=== PATIENT | male | born 1980 ===

== ENCOUNTER 2016-09-18 11:19 | Emergency (ER) | payer OTHER, BC ==
[2016-09-18 11:27] VITALS: BMI 33.7
--- NOTE | 2016-09-18 11:32 | ED PDOC ---
Arrival/HPI - General Chief Complaint: Eye Problem Time Seen by Provider: 09/18/16 11:24 Historian: Patient - History of Present Illness Narrative History of Present Illness (Text): 09/18/16 11:38 A 35 year old male, with no significant past medical history, is presenting to the emergency department with an injury to his left eye. The patient reports the injury was caused while playing baseball and getting hit with a fast ball. He states he was wearing a helmet and protective eye gear. The patient notes swelling and a laceration to the left upper eyelid and swelling and a laceration to the left side of his nose. He denies any severe pain, loss of consciousness, vision changes, nausea, vomiting, diarrhea, fever, or any other complaints at this time. Time/Duration: Prior to Arrival Symptom Onset: Sudden Symptom Course: Unchanged Severity Level: Mild Activities at Onset: Other (Playing baseball) Past Medical History - Provider Review Nursing Documentation Reviewed: Yes - Cardiac Other/Comment: Atrial/septal defect - Pulmonary Hx Respiratory Disorders: No - Neurological Hx Neurological Disorder: No - HEENT Hx HEENT Disorder: No - Renal Hx Renal Disorder: No - Endocrine/Metabolic Hx Endocrine Disorders: No - Hematological/Oncological Hx Blood Disorders: No - Integumentary Hx Dermatological Disorder: No - Musculoskeletal/Rheumatological Hx Musculoskeletal Disorders: No - Gastrointestinal Hx Gastrointestinal Disorders: No - Genitourinary/Gynecological Hx Genitourinary Disorders: No - Psychiatric Hx Psychophysiologic Disorder: No Hx Substance Use: No - Surgical History Other/Comment: Atrial/septal defect correction - Anesthesia Hx Anesthesia: Yes Hx Anesthesia Reactions: No Family/Social History - Physician Review Nursing Documentation Reviewed: Yes Family/Social History: No Known Family HX Smoking Status: Never Smoked Hx Alcohol Use: Yes Frequency of alcohol use: Socially Hx Substance Use: No Allergies/Home Meds Allergies/Adverse Reactions: Allergies iodine Allergy (Verified 09/18/16 11:27) URTICARIA shellfish derived Allergy (Verified 09/18/16 11:27) URTICARIA Home Medications: Home Meds Medication Instructions Recorded Confirmed No Known Home Med 09/18/16 09/18/16 Review of Systems - Physician Review All systems were reviewed & negative as marked: Yes - Review of Systems Constitutional: absent: Fevers Eyes: Eye Pain (Swelling to the left eye). absent: Vision Changes ENT: Other (Sweling to the left side bridge of nose) Gastrointestinal: absent: Diarrhea, Nausea, Vomiting Physical Exam - Physical Exam Narrative Physical Exam (Text): 09/18/16 11:32 Constitutional: No acute distress. Head: Normocephalic. Atraumatic. No malocclusion of the jaw. Eyes: PERRL. Edema to the left upper eyelid. 3 cm laceration to the left eyebrow, non-separable edges, no active bleeding. ENT: Moist mucous membranes. < 1 cm laceration to the left bridge of the nose, non-separable edges, non active bleeding. Neck: Supple. Cardiovascular: Regular rate. Chest: No tenderness. Respiratory: Clear to auscultation bilaterally. GI: Soft. Nontender. Nondistended. Back: No CVA tenderness. Musculoskeletal: No tenderness or swelling of extremities. Non-tender to the frontal, temporal and maxillary bones. Skin: No rash. Neurologic: Alert, no focal deficit. Sensation to touch on both sides of face. Vital Signs Reviewed: Yes Vital Signs Temp Pulse Resp BP Pulse Ox 09/18/16 12:12 98.5 F 74 19 128/75 100 09/18/16 11:21 98.8 F 89 18 135/80 97 Temperature: Afebrile Blood Pressure: Normal Pulse: Regular Respiratory Rate: Normal Appearance: Positive for: Well-Appearing, Non-Toxic, Comfortable Pain Distress: None Mental Status: Positive for: Alert and Oriented X 3 Medical Decision Making ED Course and Treatment: 09/18/16 11:32 Impression: A 35 year old male with an injury to his left eye. Plan: -- Bacitracin -- TDap Vaccine Discharged home, wound care, f/u PMD, instructed to return for vomiting, confusion, vision change, or any other problem. - Medication Orders Current Medication Orders: Discontinued Medications Bacitracin (Bacitracin) 1 ea TOP ONCE ONE Stop: 09/18/16 11:47 Last Admin: 09/18/16 11:59 Dose: 1 ea Tetanus/Reduced Diphtheria/Acell Pertussis (Boostrix Vaccine Inj) 0.5 ml IM .ONCE ONE Stop: 09/18/16 11:47 Last Admin: 09/18/16 11:58 Dose: 0.5 ml - Scribe Statement The provider has reviewed the documentation as recorded by the Scribe Soledad Rosen Provider Scribe Attestation: All medical record entries made by the Scribe were at my direction and personally dictated by me. I have reviewed the chart and agree that the record accurately reflects my personal performance of the history, physical exam, medical decision making, and the department course for this patient. I have also personally directed, reviewed, and agree with the discharge instructions and disposition. Disposition/Present on Arrival - Present on Arrival Any Indicators Present on Arrival: No History of DVT/PE: No History of Uncontrolled Diabetes: No Urinary Catheter: No History of Decub. Ulcer: No History Surgical Site Infection Following: None - Disposition Have Diagnosis and Disposition been Completed?: Yes Diagnosis: Head contusion, Abrasion Disposition: HOME/ ROUTINE Disposition Time: 11:47 Patient Plan: Discharge Condition: STABLE Discharge Instructions (ExitCare): Head Injury (ED), Abrasion (ED) Referrals: Earlene Peralta, [Primary Care Provider] - Follow up with primary
[2016-09-18] MEDS ORDERED: Bacitracin 500 Units/gm Oint Foilpak UD TOP ONE (11:46)
[2016-09-18] MEDS ORDERED: TDAP Vaccine 0.5 mL Syr IM ONE (11:46)
[2016-09-18 12:15] VITALS: BP 128/75; PULSE 74; RESP 19; TEMP 98.5; O2SAT 100
== END 2016-09-18 12:15 | disposition home or self-care (01) ==
LOC: ED 11:19
DX: S00.83XA Contusion of other part of head, initial encounter (principal); W21.03XA Struck by baseball, initial encounter; Y93.64 Activity, baseball; Y92.39 Other specified sports and athletic area as the place of occurrence of the external cause; Z23 Encounter for immunization